=== PATIENT | female | born 1985 | race Caucasian/White ===

== ENCOUNTER 2019-12-16 12:00 | Inpatient (IN) | payer BC ==
--- NOTE | 2019-12-16 13:03 | ED ---
General Adult HPI - General Chief complaint: Chest Pain Stated complaint: chest pain/high BP Time Seen by Provider: 12/16/19 12:40 Source: patient Mode of arrival: wheelchair Limitations: no limitations - History of Present Illness Initial comments: Dictation was produced using [email or web address] dictation software. please excuse any grammatical, word or spelling errors. This patient was cared for during a federal and state declared state of emergency secondary to Covid 19 Chief Complaint: 34-year-old female no significant comorbid is presents with chest pain History of Present Illness: He 4-year-old female no significant comorbidities. She presents today with chest pain. She states that the pain is sharp and pressure-like with radiation to the bilateral shoulder blades. She did experience some paresthesias to the upper extremities. Denies any LOC showing symptoms. Denies any history of blood clot. Patient states that she checked her blood pressures found to be significantly elevated with systolics in the 230s. Patient states that at home she thought that perhaps her symptoms were secondary to musculoskeletal fatigue from gardening work yesterday. Patient had one cup of coffee today. She denies any history of hypertension. She reports that the pain is still persistent although not as severe as it was earlier. 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 The ROS documented in this emergency department record has been reviewed and confirmed by me. Those systems with pertinent positive or negative responses have been documented in the HPI. All other systems are other negative and/or noncontributory. PHYSICAL EXAM: General Impression: Alert and oriented x3, mild distress HEENT: Normocephalic atraumatic, extra-ocular movements intact, pupils equal and reactive to light bilaterally, mucous membranes moist. Cardiovascular: Heart regular rate and rhythm Chest: Able to complete full sentences, no retractions, no tachypnea. Lungs clear to auscultation bilaterally Abdomen: abdomen soft, non-tender, non-distended, no organomegaly Musculoskeletal: Pulses present and equal in all extremities, no peripheral edema Motor: no focal deficits noted Neurological: CN II-XII grossly intact, no focal motor or sensory deficits noted Skin: Intact with no visualized rashes Psych: Normal affect and mood ED course: 34-year-old female presents with chest pain. Vital signs upon arrival shows blood pressure of 242/122, worse vital signs within acceptable limits.initial EKG showed nonspecific findings. Repeat EKG was performed approximately one hour after the initial EKG showing no dynamic ch anges.Laboratory evaluation obtained. CBC, coag panel, metabolic panel is unremarkable. Troponin however is elevated 0.046. Beta hCG is negative. Discussed with radiology patient's CT of the thoracic aorta. No findings of acute aortic dissection or pulmonary embolus. Patient started on heparin for concerns of nstemi.. She took 324 mg of aspirin prior to arrival. Clinical presentation concerning for hypertensive emergency. Discussed patient case with the director of individual giving who requests the patient be started on clevidipine. Discussed patient case with Dr. Aldana was went except patient's care is hospitalist. EKG interpretation: Ventricular rate 80, normal sinus rhythm,. Interval 144, QRS 90, QTC 410. Hyperacute T waves in anterior precordial leads. There is T- wave inversions in 3 and aVF with small Q-wave. Overall these are nonspecific findings. - Related Data Home Medications Medication Instructions Recorded Confirmed Albuterol Sulfate [Ventolin HFA] 2 puff INHALATION RT-Q4H PRN 12/16/19 12/16/19 Azelastine HCl [Astepro] 1 spray EA NOSTRIL DAILY 12/16/19 12/16/19 Fexofenadine HCl [Tanja Allergy] 180 mg PO HS 12/16/19 12/16/19 Fluticasone Nasal [place] [Flonase 1 spray EA NOSTRIL HS 12/16/19 12/16/19 Nasal [place]] Allergies Allergy/AdvReac Type Severity Reaction Status Date / Time No Known Allergies Allergy Verified 12/16/19 15:22 Review of Systems ROS Statement: Those systems with pertinent positive or pertinent negative responses have been documented in the HPI. ROS Other: All systems not noted in ROS Statement are negative. Past Medical History Past Medical History: No Reported History History of Any Multi-Drug Resistant Organisms: None Reported Past Surgical History: No Surgical Hx Reported Past Psychological History: No Psychological Hx Reported Smoking Status: Current every day smoker Past Alcohol Use History: Occasional Past Drug Use History: Marijuana General Exam Limitations: no limitations Course Vital Signs 12/16/19 12/16/19 12/16/19 12:15 12:34 13:00 Temperature 98.4 F Pulse Rate 86 91 82 Respiratory 18 Rate Blood Pressure 242/122 206/136 O2 Sat by Pulse 99 98 Oximetry 12/16/19 12/16/19 12/16/19 13:30 13:48 14:00 Temperature Pulse Rate 89 73 70 Respiratory Rate Blood Pressure 217/123 200/128 200/128 O2 Sat by Pulse 97 98 98 Oximetry 12/16/19 14:30 Temperature Pulse Rate 76 Respiratory Rate Blood Pressure 203/120 O2 Sat by Pulse 98 Oximetry Medical Decision Making - Lab Data Result diagrams: 12/16/19 12:43 12/16/19 12:43 Lab Results 12/16/19 12/16/19 12/16/19 Range/Units 12:43 12:43 12:43 WBC 6.4 (3.8-10.6) k/uL RBC 5.13 (3.80-5.40) m/uL Hgb 13.9 (11.4-16.0) gm/dL Hct 44.2 (34.0-46.0) % MCV 86.2 (80.0-100.0) fL MCH 27.0 (25.0-35.0) pg MCHC 31.4 (31.0-37.0) g/dL RDW 13.9 (11.5-15.5) % Plt Count 193 (150-450) k/uL Neutrophils % 58 % Lymphocytes % 28 % Monocytes % 5 % Eosinophils % 5 % Basophils % 2 % Neutrophils # 3.7 (1.3-7.7) k/uL Lymphocytes # 1.8 (1.0-4.8) k/uL Monocytes # 0.3 (0-1.0) k/uL Eosinophils # 0.3 (0-0.7) k/uL Basophils # 0.1 (0-0.2) k/uL PT (9.0-12.0) sec INR (<1.2) APTT (22.0-30.0) sec Sodium 136 L (137-145) mmol/L Potassium 4.4 (3.5-5.1) mmol/L Chloride 108 H (98-107) mmol/L Carbon Dioxide 20 L (22-30) mmol/L Anion Gap 8 mmol/L BUN 16 (7-17) mg/dL Creatinine 0.79 (0.52-1.04) mg/dL Est GFR (CKD-EPI)AfAm >90 (>60 ml/min/1.73 sqM) Est GFR (CKD-EPI)NonAf >90 (>60 ml/min/1.73 sqM) Glucose 108 H (74-99) mg/dL Calcium 8.8 (8.4-10.2) mg/dL Troponin I 0.046 H* (0.000-0.034) ng/mL Urine HCG, Qual (Not Detectd) 12/16/19 12/16/19 Range/Units 12:43 13:45 WBC (3.8-10.6) k/uL RBC (3.80-5.40) m/uL Hgb (11.4-16.0) gm/dL Hct (34.0-46.0) % MCV (80.0-100.0) fL MCH (25.0-35.0) pg MCHC (31.0-37.0) g/dL RDW (11.5-15.5) % Plt Count (150-450) k/uL Neutrophils % % Lymphocytes % % Monocytes % % Eosinophils % % Basophils % % Neutrophils # (1.3-7.7) k/uL Lymphocytes # (1.0-4.8) k/uL Monocytes # (0-1.0) k/uL Eosinophils # (0-0.7) k/uL Basophils # (0-0.2) k/uL PT 10.0 (9.0-12.0) sec INR 1.0 (<1.2) APTT 24.0 (22.0-30.0) sec Sodium (137-145) mmol/L Potassium (3.5-5.1) mmol/L Chloride (98-107) mmol/L Carbon Dioxide (22-30) mmol/L Anion Gap mmol/L BUN (7-17) mg/dL Creatinine (0.52-1.04) mg/dL Est GFR (CKD-EPI)AfAm (>60 ml/min/1.73 sqM) Est GFR (CKD-EPI)NonAf (>60 ml/min/1.73 sqM) Glucose (74-99) mg/dL Calcium (8.4-10.2) mg/dL Troponin I (0.000-0.034) ng/mL Urine HCG, Qual Not Detected (Not Detectd) Disposition Clinical Impression: Hypertensive emergency Disposition: ADMITTED IP TO THIS HOSP Condition: Critical Referrals: None,Stated [Primary Care Provider] - 1-2 days Decision Time: 16:02
[2019-12-16 13:40] LABS: Basophils # (A) 0.1 k/uL (0-0.2); Basophils % (A) 2 %; Eosinophils # (A) 0.3 k/uL (0-0.7); Eosinophils % (A) 5 %; HCT 44.2 % (34.0-46.0); HGB 13.9 gm/dL (11.4-16.0); Lymphocytes # (A) 1.8 k/uL (1.0-4.8); Lymphocytes % (A) 28 %; MCHC 31.4 g/dL (31.0-37.0); MCV 86.2 fL (80.0-100.0); Monocytes # (A) 0.3 k/uL (0-1.0); Monocytes % (A) 5 %; Neutrophils # (A) 3.7 k/uL (1.3-7.7); Neutrophils % (A) 58 %; Platelet Count 193 k/uL (150-450); RBC 5.13 m/uL (3.80-5.40); RDW 13.9 % (11.5-15.5); WBC 6.4 k/uL (3.8-10.6)
[2019-12-16 14:05] LABS: African American GFR (CKD) >90 (>60 ml/min/1.73 sqM); Anion Gap 8 mmol/L; Blood Urea Nitrogen 16 mg/dL (7-17); Calcium 8.8 mg/dL (8.4-10.2); Carbon Dioxide 20 mmol/L (22-30); Chloride 108 mmol/L (98-107); Glucose 108 mg/dL (74-99); Non-African American GFR(CKD) >90 (>60 ml/min/1.73 sqM); Sodium 136 mmol/L (137-145)
[2019-12-16 14:18] LABS: Potassium 4.4 mmol/L (3.5-5.1)
[2019-12-16] MEDS ORDERED: HEPARIN SODIUM,PORCINE 5,000 UNIT/ML 1 ML VIAL IV PRN (14:47)
[2019-12-16] MEDS ORDERED: NITROGLYCERIN-D5W PMX 50 MG in DEXTROSE/WATER 1 250ML.BAG IV ONE ×2 (14:47→15:39)
[2019-12-16] MEDS ORDERED: HEPARIN SOD,PORK IN 0.45% NACL 25,000 UNIT in 0.45% NACL 1 250ML.BAG IV SCH ×2 (15:00→15:45)
[2019-12-16] MEDS: HEPARIN SODIUM,PORCINE 5,000 UNIT/ML 1 ML VIAL IV ONE ×2 (15:08→16:05)
[2019-12-16] MEDS ORDERED: HEPARIN SODIUM,PORCINE 5,000 UNIT/ML 1 ML VIAL IV ONE (15:39)
[2019-12-16] MEDS ORDERED: NITROGLYCERIN SL TABS 0.4 MG TAB SUBLINGUAL STA (15:39)
--- NOTE | 2019-12-16 16:00 | CT ---
EXAMINATION TYPE: CT angio thor/abd pel aorta DATE OF EXAM: 12/16/2019 COMPARISON: None. HISTORY: chest pain, elevated BP CT DLP: 888.1 mGycm. Automated Exposure Control for Dose Reduction was Utilized. CONTRAST: CTA scan of the thorax, abdomen and half of pelvis is performed with IV Contrast, patient injected wi th 100 mL of Isovue 370. Dissection protocol with 3-D reconstructive images created on a independent workstation and reviewed. FINDINGS: VASCULAR: Satisfactory enhancement of the pulmonary artery and its branches, no CT evidence for acute pulmonary embolism. Ascending aorta measures up to 3.6 cm diameter maximum of 69. Normal three-vesse l origin from September. There is very evident in the upper abdominal aorta with originating small vessel and then to adjacent arteries axial image 153 and 155 above the SMA axial image 160. Patent bilatera l single renal arteries and [place]. Patent, and along with internal and external iliac arteries. No sign ificant plaque or stenosis. No aneurysm. No linear hypodensity to suggest dissection. LUNGS: The lungs are grossly clear, there is no concerning parenchymal mass or nodule identified. There is no pleural effusion or pneumothorax seen. The tracheobronchial tree is patent. MEDIASTINUM: There are no greater than 1 cm hilar or mediastinal lymph nodes. No cardiomegaly or pe ricardial effusion is seen. LIVER/GB: No significant abnormality is appreciated. PANCREAS: No significant abnormality is seen. SPLEEN: No significant abnormality is seen. ADRENALS: No significant abnormality is seen. KIDNEYS: No significant abnormality is seen. BOWEL: Suboptimal evaluation without enteric contrast. No suspicious small or large bowel dilatation. GENITAL ORGANS: Anteverted uterus partially imaged. Suspect some free fluid right pelvis axial image 240, nonspecific finding. Partial visualization of ovaries suboptimally evaluated. LYMPH NODES: No greater than 1cm abdominal or upper pelvic lymph nodes are appreciated. OSSEOUS STRUCTURES: No significant abnormality is seen. OTHER: No significant additional abnormality is seen. IMPRESSION: No CT evidence for aortic aneurysm or dissection. No acute pulmonary embolism. Normal co ngenital variant at level of celiac artery origin is presumed present.
[2019-12-16] MEDS: CLEVIDIPINE BUTYRATE 25 MG in EMPTY BAG 1 BAG IV SCH ×4 (16:12→23:41)
[2019-12-16] MEDS ORDERED: NITROGLYCERIN OINT 1 INCH/GM PACKET TOPICAL STA (16:36)
--- NOTE | 2019-12-16 16:36 | P.CNPUL ---
History of Present Illness Consult date: 12/16/19 Reason for consult: chest pain, other Chief complaint: Chest pain, hypertensive emergency History of present illness: 34-year-old patient of Dr. Cristina, past medical history of hypertension not on any antihypertensives, current smoker, ALLERGIC rhinitis home medications include Astepro, Tanja, Flonase and Ventolin inhaler, employed as an x-ray tech at the [employer], was at work today on 12/16/2023 she started e xperiencing dull pressure in her chest in the left breast area, was occasionally sharper in nature, and lasted for a few hours, she is still experiencing some chest discomfort right now. She had her blood pressure checked by someone at work and it was quite elevated with systolic in the 230s. Patient states she had some mild shortness of breath but she thinks it was more from anxiety. No nausea or vomiting, no diaphoresis, no recent illness. The pressure-like chest sensation was radiating to the bilateral shoulder blades. NO Altered mentation, no lower extremity swelling. EKG showed normal sinus rhythm with a Q waves in the anterior leads including V2, V3, V4, and evidence of anterior infarct of undetermined age. T-wave inversion in the lead 3. 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 Labs showed CBC within normal limits, remission profile was within normal limits, sodium is 136, potassium is 4.4, chloride is 108, CO2 is 20, BUN of 16, creatinine is 0.79, first troponin came back as 0.046. Echocardiogram is pending, patient will be started on Topamax for blood pressure control, she is currently awake and alert, responding appropriately to questions, no acute distress, lung sounds are clear to auscultation. Urine hCG was negative. Review of Systems All systems: negative Constitutional: Denies chills, Denies fever Eyes: denies blurred vision, denies pain Ears, nose, mouth and throat: Denies headache, Denies sore throat Cardiovascular: Reports chest pain, Denies shortness of breath Respiratory: Denies cough Gastrointestinal: Denies abdominal pain, Denies diarrhea, Denies nausea, Denies vomiting Genitourinary: Denies dysuria, Denies hematuria Musculoskeletal: Denies myalgias Integumentary: Denies pruritus, Denies rash Neurological: Denies numbness, Denies weakness Psychiatric: Denies anxiety, Denies depression Endocrine: Denies fatigue, Denies weight change Past Medical History Past Medical History: No Reported History History of Any Multi-Drug Resistant Organisms: None Reported Past Surgical History: No Surgical Hx Reported Past Psychological History: No Psychological Hx Reported Smoking Status: Current every day smoker Past Alcohol Use History: Occasional Past Drug Use History: Marijuana - Past Family History Father Family Medical History: Hyperlipidemia Medications and Allergies Home Medications Medication Instructions Recorded Confirmed Type Albuterol Sulfate [Ventolin HFA] 2 puff INHALATION RT-Q4H PRN 12/16/19 12/16/19 History Azelastine HCl [Astepro] 1 spray EA NOSTRIL DAILY 12/16/19 12/16/19 History Fexofenadine HCl [Tanja Allergy] 180 mg PO HS 12/16/19 12/16/19 History Fluticasone Nasal [place] [Flonase 1 spray EA NOSTRIL HS 12/16/19 12/16/19 History Nasal [place]] Allergies Allergy/AdvReac Type Severity Reaction Status Date / Time No Known Allergies Allergy Verified 12/16/19 15:22 Physical Exam Vitals: Vital Signs Temp Pulse Resp BP Pulse Ox 12/16/19 14:30 76 203/120 98 12/16/19 14:00 70 200/128 98 12/16/19 13:48 73 200/128 98 12/16/19 13:30 89 217/123 97 12/16/19 13:00 82 206/136 98 12/16/19 12:34 91 12/16/19 12:15 98.4 F 86 18 242/122 99 Intake and Output 12/16/19 12/16/19 12/16/19 06:59 14:59 22:59 Other: Weight 84.822 kg GENERAL EXAM: Alert, very pleasant, 34-year-old white female, on room air, with a pulse ox of 98% comfortable in no apparent distress. HEAD: Normocephalic/atraumatic. EYES: Normal reaction of pupils, equal size. Conjunctiva pink, sclera white. NOSE: Clear with pink turbinates. THROAT: No erythema or exudates. NECK: No masses, no JVD, no thyroid enlargement, no adenopathy. CHEST: No chest wall deformity. Symmetrical expansion. LUNGS: Equal air entry with no crackles, wheeze, rhonchi or dullness. CVS: Regular rate and rhythm, normal S1 and S2, no gallops, no murmurs, no rubs ABDOMEN: Soft, nontender. No hepatosplenomegaly, normal bowel sounds, no guarding or rigidity. EXTREMITIES: No clubbing, no edema, no cyanosis, 2+ pulses and upper and lower extremities. MUSCULOSKELETAL: Muscle strength and tone normal. SPINE: No scoliosis or deformity SKIN: No rashes CENTRAL NERVOUS SYSTEM: Alert and oriented -3. No focal deficits, tone is normal in all 4 extremities. PSYCHIATRIC: Alert and oriented -3. Appropriate affect. Intact judgment and insight. Results - Laboratory Findings CBC and BMP: 12/16/19 12:43 12/16/19 12:43 PT/INR, D-dimer PT 10.0 sec (9.0-12.0) 12/16/19 12:43 INR 1.0 (<1.2) 12/16/19 12:43 Abnormal lab findings: Abnormal Labs 12/16/19 12/16/19 12:43 12:43 Sodium 136 L Chloride 108 H Carbon Dioxide 20 L Glucose 108 H Troponin I 0.046 H* - Diagnostic Findings Chest x-ray: report reviewed, image reviewed Additional studies: CT angios of thoracic abdominal aorta Assessment and Plan Plan: Assessment: #1. Hypertensive emergency #2. Chest pain, mildly elevated troponin #3. History of hypertension not on any antihypertensives #4. History of ALLERGIC rhinitis #5. Current smoker, smokes half a pack a day for 10 years #6. Family history of her disease, mother has hypertension, father has hyperlipidemia, grandfather had CT in his 40s Plan: We'll use clevidipine drip for blood pressure control, follow troponins, troponin could be elevated to hypertensive emergency will hold off on heparin infusion, patient will be admitted to the intensive care unit, obtain stat echocardiogram. Patient will be monitored in the intensive care unit, CTA of thoracic and abdominal aorta has been reviewed, no evidence of PE, lungs are grossly clear. May use intermittent nitroglycerin patch every 6 hours. Continue to follow I performed a history & physical examination of the patient and discussed their management with my nurse practitioner, Archana Hayes. I reviewed the nurse practitioner's note and agree with the documented findings and plan of care. Lung sounds are positive for clear breath sounds.. The findings and the impression was discussed with the patient. I attest to the documentation by the nurse practitioner.
[2019-12-16 17:03] LABS: Amphetamine Screen,Urine Not Detected (NotDetected); Barbiturate Screen,Urine Not Detected (NotDetected); Benzodiazepines Screen,Urine Not Detected (NotDetected); Cocaine Screen,Urine Not Detected (NotDetected); Methadone Screen, Urine Not Detected (NotDetected); Opiate Screen,Urine Not Detected (NotDetected); Oxycodone Screen, Urine Not Detected (NotDetected); Phencyclidine Screen,Urine Not Detected (NotDetected); Tricyclic Antidepressant,Urine Not Detected (NotDetected); Urn Cannabinoid Scrn Detected (NotDetected)
[2019-12-16 17:28] LABS: Glucose,Whole Blood 91 mg/dL (75-99)
[2019-12-16] MEDS ORDERED: ALBUTEROL NEBULIZED 2.5 MG/3 ML INHALATION PRN (17:36)
[2019-12-16] MEDS ORDERED: TEMAZEPAM 15 MG CAP PO PRN (17:37)
[2019-12-16] MEDS ORDERED: HYDROcodone/APAP 5-325MG 1 EACH TAB PO PRN (17:37)
[2019-12-16] MEDS ORDERED: hydrALAZINE HCL 20 MG/ML 1 ML VIAL IVP PRN (17:38)
--- NOTE | 2019-12-16 18:31 | HP ---
HISTORY AND PHYSICAL DATE OF SERVICE: 12/16/2019 CHIEF COMPLAINTS: Chest pain and hypertensive urgency. HISTORY OF PRESENT ILLNESS: This 34-year-old woman with a past medical history of multiple medical problems, including history of occasional hypertension, history of THC, history of nicotine dependence, not being followed by a primary physician in the outpatient setting, was apparently working in [employer]. The patient is reporting increased stress for the past several days. Today the patient had significant chest pain which was sharp in character and radiated to the bilateral shoulder blades and some paresthesia in the upper limbs. The patient's blood pressure was found to be more than 230. The patient was taken to [facility] and was admitted for further evaluation and treatment. The patient had a thoracic aorta CT scan which showed no evidence of any aortic dissection. The EKG was also noted and showed some ST-T changes. The patient is being transferred to ICU for further evaluation and treatment. Dr. Schuster has been consulted. There is no history of any fever, rigor or chills. No history of headache, loss of consciousness, seizures. PAST MEDICAL HISTORY: History of hypertension, history of smoking, history of THC. HOME MEDICATIONS: 1. Flonase spray. 2. Tanja spray. 3. Astepro spray. 4. Ventolin 2 puffs q.4 p.r.n. ALLERGIES: NONE. FAMILY HISTORY: History of hyperlipidemia in the family. SOCIAL HISTORY: History of smoking, as mentioned earlier. REVIEW OF SYSTEMS: ENT: No diminished hearing. No diminished vision. CARDIOVASCULAR SYSTEM: As mentioned earlier. RESPIRATORY SYSTEM: No cough, hemoptysis. GI: No nausea, vomiting. : No dysuria or retention. NERVOUS SYSTEM: No numbness, weakness. ALLERGY/IMMUNOLOGY: No asthma, hayfever. MUSCULOSKELETAL: As mentioned earlier. HEMATOLOGY/ONCOLOGY: No history of anemia. ENDOCRINE: No history of diabetes, hypothyroidism. CONSTITUTIONAL: As mentioned earlier. DERMATOLOGY: Negative. RHEUMATOLOGY: Negative. PSYCHIATRY: As mentioned earlier. PHYSICAL EXAMINATION: Patient is alert, oriented x3. The pulse is 85. Blood pressure was 242/122. HEENT: Conjunctivae normal. NECK: No jugular venous distention. CARDIOVASCULAR SYSTEM: S1, S2 muffled. No S3. No S4. RESPIRATORY SYSTEM: Breath sounds diminished at the bases. No rhonchi. No crackles. ABDOMEN: Soft, non-tender. No mass palpable. LEGS: No edema. No swelling. NERVOUS SYSTEM: Higher functions as mentioned earlier. Moves all 4 limbs. No focal motor or sensory deficit. LYMPHATICS: No lymph node palpable in neck, axillae or groin. SKIN: No ulcer, rash, bleeding. JOINTS: No active deforming arthropathy. LABS: CBC within normal limits. INR 1. Sodium 136, potassium 4.4 and glucose 108. Troponin 0.046. UA noted. Drug screen THC positive. ASSESSMENT: 1. Chest pain, possible unstable angina. 2. Hypertensive urgency and accelerated hypertension. 3. Troponin 0.046. Rule out acute rte-CC-colryyq-elevation myocardial infarction. 4. Hyponatremia. 5. History of social stressors. 6. History of nicotine dependence. 7. History of tetrahydrocannabinol. RECOMMENDATIONS AND DISCUSSION: In this 34-year-old woman who presented with multiple complex medical issues, we recommend to continue the current medications, continue symptomatic treatment. Transfer to ICU. Cleviprex drip. Cardiology and pulmonology evaluations. Monitor blood pressure closely. Will repeat the troponins and also obtain a 2D echo with Doppler. The patient will require further cardiac workup, including a stress test. Also I would recommend that the patient follow up with a primary physician closely after discharge. Avoid some of the nasal sprays. Discussed with the patient, who understands and agrees. Further recommendations to follow. MMGENEVAL / IJN: [id number] /
[2019-12-16] MEDS: LORATADINE 10 MG TAB PO SCH (21:31)
[2019-12-16] MEDS: FLUTICASONE 50MCG/SPRAY NASAL 16GM EA NOSTRIL SCH (21:31)
[2019-12-16] MEDS ORDERED: ONDANSETRON 4 MG/2 ML VIAL IVP PRN (22:22)
[2019-12-16] MEDS: ALPRAZolam 0.25 MG TAB PO PRN (22:54)
[2019-12-16 23:27] LABS: Appearance,Urine Clear (Clear); Bilirubin,Urine Negative (Negative); Blood,Urine Negative (Negative); Color,Urine Light Yellow; Glucose,Urine (UA) Negative (Negative); Ketones,Urine Negative (Negative); Leukocyte Esterase,Urine Small (Negative); Nitrite,Urine Negative (Negative); PH, Urine 7.5 (5.0-8.0); Protein,Urine Negative (Negative); Specific Gravity,Urine 1.013 (1.001-1.035); Squamous Epithelial Cell,Urine 2 /hpf (0-4); Urobilinogen,Urine <2.0 mg/dL (<2.0); WBC,Urine 1 /hpf (0-5)
[2019-12-17] MEDS: CLEVIDIPINE BUTYRATE 25 MG in EMPTY BAG 1 BAG IV SCH ×3 (02:18→20:33)
[2019-12-17 04:57] LABS: Basophils # (A) 0.1 k/uL (0-0.2); Basophils % (A) 1 %; Eosinophils # (A) 0.4 k/uL (0-0.7); Eosinophils % (A) 5 %; HCT 45.6 % (34.0-46.0); HGB 14.4 gm/dL (11.4-16.0); Lymphocytes # (A) 2.2 k/uL (1.0-4.8); Lymphocytes % (A) 29 %; MCH 27.1 pg (25.0-35.0); MCHC 31.6 g/dL (31.0-37.0); MCV 85.9 fL (80.0-100.0); Mean Platelet Volume 8.9; Monocytes # (A) 0.4 k/uL (0-1.0); Monocytes % (A) 5 %; Neutrophils # (A) 4.4 k/uL (1.3-7.7); Neutrophils % (A) 57 %; Platelet Count 170 k/uL (150-450); RBC 5.31 m/uL (3.80-5.40); RDW 14.1 % (11.5-15.5); WBC 7.7 k/uL (3.8-10.6)
[2019-12-17 05:13] LABS: ALT 18 U/L (4-34); AST 23 U/L (14-36); African American GFR (CKD) >90 (>60 ml/min/1.73 sqM); Albumin 4.1 g/dL (3.5-5.0); Alkaline Phosphatase 47 U/L (38-126); Anion Gap 7 mmol/L; Blood Urea Nitrogen 11 mg/dL (7-17); Calcium 8.8 mg/dL (8.4-10.2); Carbon Dioxide 21 mmol/L (22-30); Chloride 105 mmol/L (98-107); Glucose 98 mg/dL (74-99); Non-African American GFR(CKD) >90 (>60 ml/min/1.73 sqM); Potassium 4.2 mmol/L (3.5-5.1); Sodium 133 mmol/L (137-145); Total Bilirubin 0.4 mg/dL (0.2-1.3)
[2019-12-17] MEDS ORDERED: PANTOPRAZOLE 40 MG TABLET PO SCH (07:30)
--- NOTE | 2019-12-17 07:54 | P.CRDCN ---
History of Present Illness Consult date: 12/17/19 Chief complaint: Chest pain History of present illness: This is a very pleasant 34-year-old female patient with a past medical history significant for underlying hypertension as well as history of smoking presented to the hospital complaining of chest discomfort. She was in her usual state of health when she was at work when she started experiencing discomfort over the left side of the chest, as sharp, without any radiation to the arms or neck or shoulders, and without any associated symptoms of sweating, dizziness, heart racing, or syncope. The patient checked her pressure at work and that was more than 200 mmHg systolic and because of that she decided to come to the hospital. In the hospital she continues to be hypertensive for she was admitted to the intensive care unit and she was started on IV calcium channel sydni. Her pr essure has been under good control since then. She stated that her chest discomfort has improved significantly after the pressure came down. The patient is not aware of any prior history of hypertension but she does have significant family history of high blood pressure. She does not have any coronary artery disease, diabetes, or dyslipidemia. She doesn't smoke. No significant family history of premature coronary artery disease. The EKG showed sinus rhythm with nonspecific changes inferiorly. The cardiac enzymes were checked and came in to be slightly abnormal which could be related to hypertension emergency but at the same time severe underlying coronary artery disease needs to be ruled out. An echocardiogram also in process to be done. I am going to start the patient on metoprolol and I'm going to wean the patient back from the IV medication. We'll follow-up on the echocardiogram. And follow-up with the patient. Please note that the patient was using anti-congestion medication for the last several days. Past Medical History Past Medical History: No Reported History Additional Past Medical History / Comment(s): Season allergies; OTC tanja, flonase, ventiline inhaler History of Any Multi-Drug Resistant Organisms: None Reported Past Surgical History: No Surgical Hx Reported Additional Past Surgical History / Comment(s): wisdom teeth removal Past Psychological History: Depression Additional Psychological History / Comment(s): Depression; childhood, no longer current problem Smoking Status: Current some day smoker Past Alcohol Use History: Occasional Additional Past Alcohol Use History / Comment(s): Smoke occassionally; stressful events in life. Alcohol consumption socially "Maybe once weekly" Past Drug Use History: Marijuana - Past Family History Father Family Medical History: Coronary Artery Disease (CAD), Hyperlipidemia mother Family Medical History: Rheumatoid Arthritis (RA), Thyroid Disorder Additional Family Medical History / Comment(s): Hypothyroidismm, Bladder cancer Medications and Allergies Home Medications Medication Instructions Recorded Confirmed Type Albuterol Sulfate [Ventolin HFA] 2 puff INHALATION RT-Q4H PRN 12/16/19 12/16/19 History Azelastine HCl [Astepro] 1 spray EA NOSTRIL DAILY 12/16/19 12/16/19 History Fexofenadine HCl [Tanja Allergy] 180 mg PO HS 12/16/19 12/16/19 History Fluticasone Nasal [place] [Flonase 1 spray EA NOSTRIL HS 12/16/19 12/16/19 History Nasal [place]] Allergies Allergy/AdvReac Type Severity Reaction Status Date / Time No Known Allergies Allergy Verified 12/16/19 15:22 Physical Exam Vitals: Vital Signs Temp Pulse Pulse Resp BP BP Pulse Ox 12/17/19 07:00 89 16 118/95 90 L 12/17/19 06:00 71 17 135/88 93 L 12/17/19 05:00 81 19 109/71 96 12/17/19 04:00 77 16 130/75 89 L 12/17/19 03:00 89 15 112/68 93 L 12/17/19 02:00 84 18 109/87 94 L 12/17/19 01:00 82 17 127/84 89 L 12/17/19 00:00 101 H 20 141/97 91 L 12/16/19 23:00 90 16 125/76 95 12/16/19 22:15 105 H 24 125/76 95 12/16/19 22:00 92 21 128/85 96 12/16/19 21:45 94 38 H 133/90 95 12/16/19 21:30 92 23 141/95 95 12/16/19 21:15 107 H 28 H 134/75 96 12/16/19 21:00 95 16 156/98 96 12/16/19 20:45 97 21 149/96 97 12/16/19 20:30 105 H 18 145/94 96 12/16/19 20:15 97.9 F 96 19 149/92 95 12/16/19 20:00 104 H 20 134/77 96 12/16/19 19:45 108 H 15 149/88 97 12/16/19 19:30 106 H 15 142/91 97 12/16/19 19:15 104 H 13 144/80 98 12/16/19 19:00 101 H 19 97 12/16/19 18:45 36 H 159/98 12/16/19 18:30 101 H 13 163/91 97 12/16/19 18:15 92 0 L 170/100 97 12/16/19 18:00 103 H 19 188/120 98 12/16/19 17:30 13 180/112 97 12/16/19 17:00 98.2 F 85 14 194/111 98 12/16/19 16:53 89 19 188/120 97 12/16/19 16:45 201/108 12/16/19 16:35 208/124 12/16/19 16:30 88 223/135 98 12/16/19 16:00 84 193/124 99 12/16/19 15:30 80 209/136 99 12/16/19 15:00 66 218/121 98 12/16/19 14:30 76 203/120 98 12/16/19 14:00 70 200/128 98 12/16/19 13:48 73 200/128 98 12/16/19 13:30 89 217/123 97 12/16/19 13:00 82 206/136 98 12/16/19 12:34 91 12/16/19 12:15 98.4 F 86 18 242/122 99 Intake and Output 12/16/19 12/17/19 12/17/19 22:59 06:59 14:59 Intake Total 663.733 290.0 20 Output Total 0 0 Balance 663.733 290.0 20 Intake: IV 140 140 20 0.9 NACL 120 0.9% Sodium Chloride 20 140 20 Intake, IV Titration 73.733 150.0 Amount Clevidipine Butyrate 25 73.733 150.0 mg In Empty Bag 1 bag @ 1 MG/HR 2 mls/hr IV .Q24H [facility] Rx#:[id number] Oral 450 Output: Urine 0 0 Other: # Voids 0 400 Weight 84.822 kg 85.1 kg - Constitutional General appearance: no acute distress - Respiratory Respiratory: bilateral: CTA - Cardiovascular Rhythm: regular Heart sounds: normal: S1, S2 Results 12/17/19 04:31 12/17/19 04:31 Cardiac Enzymes 12/16/19 12/16/19 12/17/19 Range/Units 12:43 17:43 04:31 AST (14-36) U/L Troponin I 0.046 H* 0.509 H* 0.544 H* (0.000-0.034) ng/mL 12/17/19 Range/Units 04:31 AST 23 (14-36) U/L Troponin I (0.000-0.034) ng/mL Coagulation 12/16/19 Range/Units 12:43 PT 10.0 (9.0-12.0) sec APTT 24.0 (22.0-30.0) sec CBC 12/16/19 12/17/19 Range/Units 12:43 04:31 WBC 6.4 7.7 (3.8-10.6) k/uL RBC 5.13 5.31 (3.80-5.40) m/uL Hgb 13.9 14.4 (11.4-16.0) gm/dL Hct 44.2 45.6 (34.0-46.0) % Plt Count 193 170 (150-450) k/uL Comprehensive Metabolic Panel 12/16/19 12/17/19 Range/Units 12:43 04:31 Sodium 136 L 133 L (137-145) mmol/L Potassium 4.4 4.2 (3.5-5.1) mmol/L Chloride 108 H 105 (98-107) mmol/L Carbon Dioxide 20 L 21 L (22-30) mmol/L BUN 16 11 (7-17) mg/dL Creatinine 0.79 0.77 (0.52-1.04) mg/dL Glucose 108 H 98 (74-99) mg/dL Calcium 8.8 8.8 (8.4-10.2) mg/dL AST 23 (14-36) U/L ALT 18 (4-34) U/L Alkaline Phosphatase 47 (38-126) U/L Total Protein 7.0 (6.3-8.2) g/dL Albumin 4.1 (3.5-5.0) g/dL Current Medications Generic Name Dose Route Start Last Admin Trade Name Freq PRN Reason Stop Dose Admin Hydrocodone Bitart/Acetaminophen 1 each 12/16/19 17:37 12/16/19 20:37 [place] 5-325 PO 1 each Q6HR PRN Administration Pain Albuterol Sulfate 2.5 mg 12/16/19 17:36 Ventolin Nebulized INHALATION RT-Q4H PRN Shortness Of Breath Alprazolam 0.25 mg 12/16/19 17:37 12/16/19 22:54 Xanax PO 0.25 mg TID PRN Administration Anxiety Amlodipine Besylate 2.5 mg 12/17/19 09:00 Norvasc PO DAILY [facility] Fluticasone Propionate 1 spray 12/16/19 21:00 12/16/19 21:31 Flonase Nasal [place] EA NOSTRIL 1 spray HS [facility] Administration Hydralazine HCl 10 mg 12/16/19 17:38 Apresoline IVP Q4HR PRN Blood Pressure - High Clevidipine 25 mg/ IV Solution 50 mls @ 2 mls/hr 12/16/19 16:00 12/17/19 06:11 IV 7 mg/hr .Q24H [facility] 14 mls/hr Administration Protocol 1 MG/HR Loratadine 10 mg 12/16/19 21:15 12/16/19 21:31 Claritin PO 10 mg DAILY [facility] Administration Metoprolol Tartrate 25 mg 12/17/19 09:00 Lopressor PO BID [facility] Nicotine 1 patch 12/17/19 09:00 Habitrol 14mg/24hr Patch TRANSDERM DAILY [facility] Ondansetron HCl 4 mg 12/16/19 22:22 12/16/19 22:31 Zofran IVP 4 mg Q6HR PRN Administration Nausea And Vomiting Pantoprazole Sodium 40 mg 12/17/19 09:00 Protonix IVP BID [facility] Temazepam 15 mg 12/16/19 17:37 Restoril PO HS PRN Insomnia Intake and Output 12/16/19 12/17/19 12/17/19 22:59 06:59 14:59 Intake Total 663.733 290.0 20 Output Total 0 0 Balance 663.733 290.0 20 Intake: IV 140 140 20 0.9 NACL 120 0.9% Sodium Chloride 20 140 20 Intake, IV Titration 73.733 150.0 Amount Clevidipine Butyrate 25 73.733 150.0 mg In Empty Bag 1 bag @ 1 MG/HR 2 mls/hr IV .Q24H [facility] Rx#:[id number] Oral 450 Output: Urine 0 0 Other: # Voids 0 400 Weight 84.822 kg 85.1 kg 12/17/19 04:31 12/17/19 04:31 Assessment and Plan Assessment: Assessment Hypertension emergency Mildly abnormal cardiac enzymes Chest discomfort which has improved History of smoking Plan Add aspirin to the current medical regimen Add metoprolol by mouth to the current medical regimen The right wean her from the IV calcium channel sydni Follow-up on the echocardiogram Severe underlying coronary artery disease to be ruled out Follow-up with the patient
[2019-12-17] MEDS: LORATADINE 10 MG TAB PO SCH (08:11)
[2019-12-17] MEDS: METOPROLOL TARTRATE 25 MG TAB PO SCH ×2 (08:11→22:08)
[2019-12-17] MEDS: NICOTINE 14MG/24HR PATCH TRANSDERM SCH ×2 (08:11→08:34)
[2019-12-17] MEDS: PANTOPRAZOLE 40 MG/10 ML VIAL IVP SCH ×2 (08:11→22:09)
[2019-12-17] MEDS ORDERED: amLODIPine 2.5 MG TAB PO SCH (09:00)
--- NOTE | 2019-12-17 12:20 | P.PN ---
Subjective Progress Note Date: 12/17/19 34-year-old patient of Dr. Cristina, past medical history of hypertension not o n any antihypertensives, current smoker, ALLERGIC rhinitis home medications include Astepro, Tanja, Flonase and Ventolin inhaler, employed as an x-ray tech at the [employer], was at work today on 12/16/2023 she started experiencing dull pressure in her chest in the left breast area, was occasiona lly sharper in nature, and lasted for a few hours, she is still experiencing some chest discomfort right now. She had her blood pressure checked by someone at work and it was quite elevated with systolic in the 230s. Patient states she had some mild shortness of breath but she thinks it was more from anxiety. No nausea or vomiting, no diaphoresis, no recent illness. The pressure-like chest sensation was radiating to the bilateral shoulder blades. NO Altered mentation, no lower extremity swelling. EKG showed normal sinus rhythm with a Q waves in the anterior leads including V2, V3, V4, and evidence of anterior infarct of undetermined age. T-wave inversion in the lead 3. 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 Labs showed CBC within normal limits, remission profile was within normal limits, sodium is 136, potassium is 4.4, chloride is 108, CO2 is 20, BUN of 16, creatinine is 0.79, first troponin came back as 0.046. Echocardiogram is pending, patient will be started on Topamax for blood pressure control, she is currently awake and alert, responding appropriately to questions, no acute distress, lung sounds are clear to auscultation. Urine hCG was negative. On today's evaluation of 62,020, the patient is doing well. No specific complaints. No chest pain. She is on clevidipine drip at 7 mg an hour. BP is under good control. Echocardiogram is in progress. CT angiogram showed patent renal arteries. There is no evidence of any dissection. Echocardiogram is pending for now. There is some troponin leak related to hypertensive urgency/emergency. No headaches. No altered mentation. No signs of any renal failure. The overall blood pressure control is improved significantly and the patient will be gradually weaned off the clevidipine drip. The patient was started on metoprolol 25 mg by mouth twice a day and cardiology consult patient is also be obtained. Objective - Vital Signs Vital signs: Vital Signs Temp 97.6 F 12/17/19 08:00 Pulse 67 12/17/19 11:00 Resp 22 12/17/19 11:00 BP 129/84 12/17/19 11:00 Pulse Ox 95 12/17/19 11:00 Intake & Output 12/16/19 12/17/19 12/17/19 18:59 06:59 18:59 Intake Total 83.733 870.0 120 Output Total 0 125 Balance 83.733 870.0 -5 Weight 84.822 kg 85.1 kg Intake: IV 60 220 120 0.9 NACL 40 80 0.9% Sodium Chloride 20 140 120 Intake, IV Titration 23.733 200.0 Amount Clevidipine Butyrate 25 23.733 200.0 mg In Empty Bag 1 bag @ 1 MG/HR 2 mls/hr IV .Q24H [facility] Rx#:[id number] Oral 450 Output: Urine 0 125 Other: # Voids 1 400 - Exam The patient appeared well nourished and normally developed. Vital signs as documented. Head exam is unremarkable. No scleral icterus or corneal arcus noted. Neck is without jugular venous distension, thyromegaly, or carotid bruits. Carotid upstrokes are brisk bilaterally. Lungs are clear to auscultation and percussion. Cardiac exam reveals the PMI to be normally sized and situated. Rhythm is regular. First and second heart sounds normal. No murmurs, rubs or gallops. Abdominal exam reveals normal bowel sounds, no masses, no organomegaly and no aortic enlargement. Extremities are nonedematous and both femoral and pedal pulses are normal.Examination of the skin revealed no evidence of significant rashes, suspicious appearing nevi or other concerning lesions. Neurologically the patient is awake and alert and there is no focal neurological deficit - Labs CBC & Chem 7: 12/17/19 04:31 12/17/19 04:31 Labs: Abnormal Lab Results - Last 24 Hours (Table) 12/16/19 12/16/19 12/16/19 Range/Units 12:43 12:43 12:43 Sodium 136 L (137-145) mmol/L Chloride 108 H (98-107) mmol/L Carbon Dioxide 20 L (22-30) mmol/L Glucose 108 H (74-99) mg/dL Magnesium 2.4 H (1.6-2.3) mg/dL Troponin I 0.046 H* (0.000-0.034) ng/mL Ur Leukocyte Esterase (Negative) U Marijuana (THC) Screen (NotDetected) 12/16/19 12/16/19 12/16/19 Range/Units 13:45 17:43 22:03 Sodium (137-145) mmol/L Chloride (98-107) mmol/L Carbon Dioxide (22-30) mmol/L Glucose (74-99) mg/dL Magnesium (1.6-2.3) mg/dL Troponin I 0.509 H* (0.000-0.034) ng/mL Ur Leukocyte Esterase Small H (Negative) U Marijuana (THC) Screen Detected H (NotDetected) 12/17/19 12/17/19 Range/Units 04:31 04:31 Sodium 133 L (137-145) mmol/L Chloride (98-107) mmol/L Carbon Dioxide 21 L (22-30) mmol/L Glucose (74-99) mg/dL Magnesium (1.6-2.3) mg/dL Troponin I 0.544 H* (0.000-0.034) ng/mL Ur Leukocyte Esterase (Negative) U Marijuana (THC) Screen (NotDetected) Assessment and Plan Plan: #1. Hypertensive emergency , treated in the intensive care unit with a clevidip ine drip, with improved blood pressure control. No target organ damage. Echocardiac Freddy is pending for now. CT angiogram shows no evidence of any dissection and a renal arteries are patent. #2. Chest pain, mildly elevated troponin, recovered and there is some minimal troponin leak. #3. History of hypertension not on any antihypertensives #4. History of ALLERGIC rhinitis #5. Current smoker, smokes half a pack a day for 10 years #6. Family history of her disease, mother has hypertension, father has hyperlipidemia, grandfather had [place] in his 40s #7 cannabis use. Rest of the urine as a screen is negative. Plan Wean off the clevidipine drip and discontinue Continue metoprolol orally Hydralazine as needed for systolic blood pressure above 160 Echocardiogram pending We'll continue to follow. The patient can be transferred out of the intensive care unit once she is weaned off the clevidipine drip.
--- NOTE | 2019-12-17 17:00 | P.PN ---
Subjective Patient is admitted for possible hypertensive urgency patient does have elevated troponins and patient does have significant risk factors of premature coronary artery disease because of which are cardiology recommended cardiac catheterization to the patient but patient declined cardiac catheterization. Patient is presently on clevedipine and nitroglycerin was discontinued today morning. Patient blood pressure is well controlled at this time. Constitutional: Denied any fatigue denied any fever. Cardio vascular: denied any chest pain, palpitations Gastrointestinal denied any nausea vomiting Pulmonary: Denied any shortness of breath cough Neurologic denied any new focal deficits All inpatient medications were reviewed and appropriate changes in these medications as dictated in the interval history and assessment and plan. Objective - Vital Signs Vital signs: Vital Signs Temp 97.6 F 12/17/19 12:00 Pulse 70 12/17/19 14:00 Resp 19 12/17/19 14:00 BP 131/87 12/17/19 14:00 Pulse Ox 97 12/17/19 14:00 Intake & Output 12/16/19 12/17/19 12/17/19 18:59 06:59 18:59 Intake Total 83.733 870.0 160 Output Total 0 125 Balance 83.733 870.0 35 Weight 84.822 kg 85.1 kg Intake: IV 60 220 160 0.9 NACL 40 80 0.9% Sodium Chloride 20 140 160 Intake, IV Titration 23.733 200.0 Amount Clevidipine Butyrate 25 23.733 200.0 mg In Empty Bag 1 bag @ 1 MG/HR 2 mls/hr IV .Q24H [facility] Rx#:[id number] Oral 450 Output: Urine 0 125 Other: # Voids 1 400 - Exam PHYSICAL EXAMINATION: GENERAL: The patient is alert and oriented x3, not in any acute distress. Well developed, well nourished. HEENT: Pupils are round and equally reacting to light. EOMI. No scleral icterus. No conjunctival pallor. Normocephalic, atraumatic. No pharyngeal erythema. No thyromegaly. CARDIOVASCULAR: S1 and S2 present. No murmurs, rubs, or gallops. PULMONARY: Chest is clear to auscultation, no wheezing or crackles. ABDOMEN: Soft, nontender, nondistended, normoactive bowel sounds. No palpable organomegaly. MUSCULOSKELETAL: No joint swelling or deformity. EXTREMITIES: No cyanosis, clubbing, or pedal edema. NEUROLOGICAL: Gross neurological examination did not reveal any focal deficits. SKIN: No rashes. - Labs CBC & Chem 7: 12/17/19 04:31 12/17/19 04:31 Labs: Abnormal Lab Results - Last 24 Hours (Table) 12/16/19 12/16/19 12/16/19 Range/Units 12:43 13:45 17:43 Sodium (137-145) mmol/L Carbon Dioxide (22-30) mmol/L Magnesium 2.4 H (1.6-2.3) mg/dL Troponin I 0.509 H* (0.000-0.034) ng/mL Ur Leukocyte Esterase (Negative) U Marijuana (THC) Screen Detected H (NotDetected) 12/16/19 12/17/19 12/17/19 Range/Units 22:03 04:31 04:31 Sodium 133 L (137-145) mmol/L Carbon Dioxide 21 L (22-30) mmol/L Magnesium (1.6-2.3) mg/dL Troponin I 0.544 H* (0.000-0.034) ng/mL Ur Leukocyte Esterase Small H (Negative) U Marijuana (THC) Screen (NotDetected) Assessment and Plan Plan: -Hypertensive emergency with elevated troponins mild and stable: Patient is an above-mentioned the medications IV will be switched to oral antidepressant medications. -Chest pain: Secondary to habitus emergency mild elevated troponin secondary to elevated blood pressure -Nicotine abuse:: Counseling was provided
--- NOTE | 2019-12-17 17:38 | ECHOF ---
Referral Reason:HTN MEASUREMENTS -------- HEIGHT: 172.7 cm WEIGHT: 84.8 kg BP: 118/95 IVSd: 1.9 cm (0.6 - 1.1) LVIDd: 3.0 cm (3.9 - 5.3) LVPWd: 1.8 cm (0.6 - 1.1) IVSs: 1.8 cm LVIDs: 1.8 cm LVPWs: 2.2 cm LAESV Index (A-L): 24.39 ml/m Ao Diam: 3.0 cm (2.0 - 3.7) LA Diam: 1.7 cm (2.7 - 3.8) AV Cusp: 2.0 cm (1.5 - 2.6) EPSS: 0.7 cm MV E Ellis: 0.96 m/s MV DecT: 158 ms MV A Ellis: 0.68 m/s MV E/A Ratio: 1.42 RAP: 5.00 mmHg RVSP: 16.07 mmHg MV EF SLOPE: 85.57 mm/s (70 - 150) MV EXCURSION: 12.45 mm (> 18.000) FINDINGS -------- Sinus rhythm. This was a technically good study. The left ventricular size is normal. There is severe concentric left ventricular hypertrophy. Ove rall left ventricular systolic function is normal with, an EF between 60 - 65 %. The diastolic fill ing pattern is normal for the age of the patient 11.53. The right ventricle is normal in size. The left atrial size is normal. Normal LA size by volume 22+/-6 ml/m2. The right atrial size is normal. Interatrial and interventricular septum intact. The aortic valve is trileaflet and appears structurally normal. The mitral valve is normal. There is trace mitral regurgitation. The tricuspid valve appears structurally normal. Trace tricuspid regurgitation present. Right tracie tricular systolic pressure is normal at < 35 mmHg. There is no pulmonic regurgitation present. The aortic root size is normal. Normal inferior vena cava with normal inspiratory collapse consistent with estimated right atrial pre ssure of 5 mmHg. There is a small, generalized pericardial effusion present. CONCLUSIONS -------- 1. Sinus rhythm. 2. This was a technically good study. 3. The left ventricular size is normal. 4. There is severe concentric left ventricular hypertrophy. 5. Overall left ventricular systolic function is normal with, an EF between 60 - 65 %. 6. The diastolic filling pattern is normal for the age of the patient 11.53 7. The right ventricle is normal in size. 8. The left atrial size is normal. 9. Normal LA size by volume 22+/-6 ml/m2. 10. The right atrial size is normal. 11. Interatrial and interventricular septum intact. 12. The aortic valve is trileaflet and appears structurally normal. 13. The mitral valve is normal. 14. There is trace mitral regurgitation. 15. The tricuspid valve appears structurally normal. 16. Trace tricuspid regurgitation present. 17. Right ventricular systolic pressure is normal at < 35 mmHg. 18. There is no pulmonic regurgitation present. 19. The aortic root size is normal. 20. Normal inferior vena cava with normal inspiratory collapse consistent with estimated right atrial pressure of 5 mmHg. 21. There is a small, generalized pericardial effusion present. MOTOR REBUILDER: Mariann Pathak RDCS
[2019-12-17] MEDS: FLUTICASONE 50MCG/SPRAY NASAL 16GM EA NOSTRIL SCH (22:09)
[2019-12-17] MEDS: ALPRAZolam 0.25 MG TAB PO PRN (23:09)
[2019-12-18] MEDS: CLEVIDIPINE BUTYRATE 25 MG in EMPTY BAG 1 BAG IV SCH (00:03)
[2019-12-18 05:02] LABS: Basophils # (A) 0.1 k/uL (0-0.2); Basophils % (A) 2 %; Eosinophils # (A) 0.5 k/uL (0-0.7); Eosinophils % (A) 6 %; HCT 45.6 % (34.0-46.0); HGB 14.7 gm/dL (11.4-16.0); Lymphocytes # (A) 2.8 k/uL (1.0-4.8); Lymphocytes % (A) 37 %; MCH 28.8 pg (25.0-35.0); MCHC 32.3 g/dL (31.0-37.0); MCV 89.1 fL (80.0-100.0); Mean Platelet Volume 8.9; Monocytes # (A) 0.4 k/uL (0-1.0); Monocytes % (A) 5 %; Neutrophils # (A) 3.7 k/uL (1.3-7.7); Neutrophils % (A) 49 %; Platelet Count 219 k/uL (150-450); RBC 5.12 m/uL (3.80-5.40); RDW 14.2 % (11.5-15.5); WBC 7.6 k/uL (3.8-10.6)
[2019-12-18 05:26] LABS: Albumin 3.8 g/dL (3.5-5.0); Calcium 8.7 mg/dL (8.4-10.2); Potassium 4.4 mmol/L (3.5-5.1); Total Bilirubin 0.5 mg/dL (0.2-1.3); Total Protein 6.5 g/dL (6.3-8.2)
--- NOTE | 2019-12-18 07:47 | P.PN ---
Subjective Progress Note Date: 12/18/19 Principal diagnosis: Chest pain This is a 34-year-old female patient with hypertension and history of smoking who was admitted to the hospital was hypertensive emergency. She presented with a chest discomfort and elevated blood pressure. Also her cardiac enzymes came in to be slightly abnormal. The echo revealed normal LV function without significant valvular abnormalities. She was seen today, December 172019. The patient states that she has been chest pain-free. The pressure is a slightly elevated. Currently she is metoprolol 25 mg by mouth twice a day I'm going to add lisinopril at 5 mg by mouth daily. She underwent an echo which revealed normal LV function without any significant valvular abnormalities. I discussed with the patient the need for coronary yana ogram to rule out severe underlying coronary artery disease but the patient would like to wait at this point. Objective - Vital Signs Vital signs: Vital Signs Temp 98 F 12/18/19 04:00 Pulse 68 12/18/19 07:00 Resp 18 12/18/19 07:00 BP 121/75 12/18/19 07:00 Pulse Ox 96 12/18/19 07:00 Intake & Output 12/17/19 12/18/19 12/18/19 18:59 06:59 18:59 Intake Total 270 285.833 20 Output Total 475 125 Balance -205 160.833 20 Weight 87.6 kg Intake: IV 220 240 20 0.9% Sodium Chloride 220 240 20 Intake, IV Titration 50 45.833 Amount Clevidipine Butyrate 25 50 45.833 mg In Empty Bag 1 bag @ 1 MG/HR 2 mls/hr IV .Q24H [facility] Rx#:[id number] Output: Urine 475 125 Other: # Voids 1 - Constitutional General appearance: Present: no acute distress - Respiratory Respiratory: bilateral: CTA - Cardiovascular Rhythm: regular Heart sounds: normal: S1, S2 - Labs CBC & Chem 7: 12/18/19 04:42 12/18/19 04:42 Labs: Abnormal Lab Results - Last 24 Hours (Table) 12/18/19 Range/Units 04:42 Sodium 133 L (137-145) mmol/L Carbon Dioxide 19 L (22-30) mmol/L Assessment and Plan Assessment: Assessment Hypertension emergency Mildly abnormal cardiac enzymes Chest discomfort which has improved History of smoking Plan Continue the current medical regimen I lisinopril to the current medical regimen Heart catheterization was discussed and the patient would like to wait Follow-up with the patient
[2019-12-18] MEDS ORDERED: LISINOPRIL 5 MG TAB PO SCH (09:00)
[2019-12-18] MEDS: LORATADINE 10 MG TAB PO SCH (09:11)
[2019-12-18] MEDS: METOPROLOL TARTRATE 25 MG TAB PO SCH (09:11)
[2019-12-18] MEDS: NICOTINE 14MG/24HR PATCH TRANSDERM SCH (09:11)
[2019-12-18] MEDS: PANTOPRAZOLE 40 MG/10 ML VIAL IVP SCH (09:11)
--- NOTE | 2019-12-18 11:20 | P.PN ---
Subjective Progress Note Date: 12/18/19 34-year-old patient of Dr. Cristina, past medical history of hypertension not o n any antihypertensives, current smoker, ALLERGIC rhinitis home medications include Astepro, Tanja, Flonase and Ventolin inhaler, employed as an x-ray tech at the [employer], was at work today on 12/16/2023 she started experiencing dull pressure in her chest in the left breast area, was occasiona lly sharper in nature, and lasted for a few hours, she is still experiencing some chest discomfort right now. She had her blood pressure checked by someone at work and it was quite elevated with systolic in the 230s. Patient states she had some mild shortness of breath but she thinks it was more from anxiety. No nausea or vomiting, no diaphoresis, no recent illness. The pressure-like chest sensation was radiating to the bilateral shoulder blades. NO Altered mentation, no lower extremity swelling. EKG showed normal sinus rhythm with a Q waves in the anterior leads including V2, V3, V4, and evidence of anterior infarct of undetermined age. T-wave inversion in the lead 3. 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 Labs showed CBC within normal limits, remission profile was within normal limits, sodium is 136, potassium is 4.4, chloride is 108, CO2 is 20, BUN of 16, creatinine is 0.79, first troponin came back as 0.046. Echocardiogram is pending, patient will be started on Topamax for blood pressure control, she is currently awake and alert, responding appropriately to questions, no acute distress, lung sounds are clear to auscultation. Urine hCG was negative. On today's evaluation of 62,020, the patient is doing well. No specific complaints. No chest pain. She is on clevidipine drip at 7 mg an hour. BP is under good control. Echocardiogram is in progress. CT angiogram showed patent renal arteries. There is no evidence of any dissection. Echocardiogram is pending for now. There is some troponin leak related to hypertensive urgency/emergency. No headaches. No altered mentation. No signs of any renal failure. The overall blood pressure control is improved significantly and the patient will be gradually weaned off the clevidipine drip. The patient was started on metoprolol 25 mg by mouth twice a day and cardiology consult patient is also be obtained. On today's evaluation of 12/18/2019, the patient is doing extremely well. She has no specific complaints. No chest pain. No cough. No sputum production. No angina. No pleurisy. She is off the clevidipine drip. She is on a combination of Zestril 5 mg by mouth daily and metoprolol 25 mg by mouth twice a day. Her BP is under good control. Echocardiogram was done and it showed concentric left ventricular hypertrophy, severe, indicating chronic hypertension. Nevertheless, the patient has no complaints at all. Her blood work is also within normal. Thyroid function test is within normal limits. Objective - Vital Signs Vital signs: Vital Signs Temp 98 F 12/18/19 04:00 Pulse 68 12/18/19 07:00 Resp 18 12/18/19 07:00 BP 121/75 12/18/19 07:00 Pulse Ox 96 12/18/19 07:00 Intake & Output 12/17/19 12/18/19 12/18/19 18:59 06:59 18:59 Intake Total 270 285.833 20 Output Total 475 125 Balance -205 160.833 20 Weight 87.6 kg Intake: IV 220 240 20 0.9% Sodium Chloride 220 240 20 Intake, IV Titration 50 45.833 Amount Clevidipine Butyrate 25 50 45.833 mg In Empty Bag 1 bag @ 1 MG/HR 2 mls/hr IV .[facility] Rx#:[id number] Output: Urine 475 125 Other: # Voids 1 - Exam The patient appeared well nourished and normally developed. Vital signs as documented. Head exam is unremarkable. No scleral icterus or corneal arcus note d. Neck is without jugular venous distension, thyromegaly, or carotid bruits. Carotid upstrokes are brisk bilaterally. Lungs are clear to auscultation and percussion. Cardiac exam reveals the PMI to be normally sized and situated. Rhythm is regular. First and second heart sounds normal. No murmurs, rubs or gallops. Abdominal exam reveals normal bowel sounds, no masses, no organomegaly and no aortic enlargement. Extremities are nonedematous and both femoral and pedal pulses are normal.Examination of the skin revealed no evidence of significant rashes, suspicious appearing nevi or other concerning lesions. Neurologically the patient is awake and alert and there is no focal neurological deficit - Labs CBC & Chem 7: 12/18/19 04:42 12/18/19 04:42 Labs: Abnormal Lab Results - Last 24 Hours (Table) 12/18/19 Range/Units 04:42 Sodium 133 L (137-145) mmol/L Carbon Dioxide 19 L (22-30) mmol/L Assessment and Plan Plan: #1. Hypertensive emergency , treated in the intensive care unit with a clevidipine drip, with improved blood pressure control. No target organ damage. Echo of the heart showed severe concentric LVH consistent with hypertensive heart disease and long-term hypertension. Her BP needs to be under tighter control on outpatient basis. Currently well-controlled on a combination of metoprolol and lisinopril. #2. Chest pain, mildly elevated troponin, recovered and there is some minimal troponin leak. #3. History of hypertension not on any antihypertensives #4. History of ALLERGIC rhinitis #5. Current smoker, smokes half a pack a day for 10 years #6. Family history of her disease, mother has hypertension, father has hyperlipidemia, grandfather had CT in his 40s #7 cannabis use. Rest of the urine as a screen is negative. Plan Salt restriction Continue metoprolol and Zestril Education about BP Transfer out of a medical floor possible discharge today if cleared by cardiology.
[2019-12-18 12:48] VITALS: TEMP 97.8
--- NOTE | 2019-12-18 14:14 | P.DS ---
Providers Date of admission: 12/16/19 16:40 Attending physician: Beni Aldana Consults: 12/16/19 15:58 Consult Physician Routine Consulting Provider: Rose Schuster Consult Reason/Comments: icu patient Do you want consulting provider notified?: Already Contacted 12/16/19 15:59 Consult Physician Routine Consulting Provider: Shawn Alvarez Consult Reason/Comments: elevated troponin, hypertensive emergency Do you want consulting provider notified?: Yes Primary care physician: Mariann Coe [facility] Course: 34-year-old female admitted for hypertensive emergency had mildly elevated troponins which were believed to be secondary to hypertensive emergency. Her chest pain is probably secondary to that and patient will need to be further evaluated for second because of hypertension considering her age and uncontrollable blood pressure. Patient's blood pressure is well controlled at this time patient is presently being discharged on a small dose of beta sydni because of the chest been elevated troponins along with the RAJI inhibitor. Cardiology recommended cardiac catheterization patient is agreeable for that as an outpatient. As patient has a thoracic CAT scan which showed patent the arterial tree, but did not do renal artery Doppler looking for liver artery stenosis although patient need to look into other causes of secondary hypertension as an outpatient PHYSICAL EXAMINATION: GENERAL: The patient is alert and oriented x3, not in any acute distress. Well developed, well nourished. HEENT: Pupils are round and equally reacting to light. EOMI. No scleral icterus. No conjunctival pallor. Normocephalic, atraumatic. No pharyngeal erythema. No thyromegaly. CARDIOVASCULAR: S1 and S2 present. No murmurs, rubs, or gallops. PULMONARY: Chest is clear to auscultation, no wheezing or crackles. ABDOMEN: Soft, nontender, nondistended, normoactive bowel sounds. No palpable organomegaly. MUSCULOSKELETAL: No joint swelling or deformity. EXTREMITIES: No cyanosis, clubbing, or pedal edema. NEUROLOGICAL: Gross neurological examination did not reveal any focal deficits. SKIN: No rashes. Assessment and Plan Plan: -Hypertensive emergency -Chest pain: Secondary to hypertensive emergency mild elevated troponin secondary to elevated blood pressure -Nicotine abuse:: Patient Condition at Discharge: Critical Plan - Discharge Summary Discharge Rx Participant: Yes New Discharge Prescriptions: New Metoprolol Tartrate [Lopressor] 25 mg PO BID #30 tab Lisinopril [Zestril] 5 mg PO DAILY #30 tab Continue Fluticasone Nasal Sloan [Flonase Nasal Sloan] 1 spray EA NOSTRIL HS Azelastine HCl [Astepro] 1 spray EA NOSTRIL DAILY Fexofenadine HCl [Tanja Allergy] 180 mg PO HS Albuterol Sulfate [Ventolin HFA] 2 puff INHALATION RT-Q4H PRN PRN Reason: Shortness Of Breath Discharge Medication List Albuterol Sulfate [Ventolin HFA] 2 puff INHALATION RT-Q4H PRN 12/16/19 [History] Azelastine HCl [Astepro] 1 spray EA NOSTRIL DAILY 12/16/19 [History] Fexofenadine HCl [Tanja Allergy] 180 mg PO HS 12/16/19 [History] Fluticasone Nasal Sloan [Flonase Nasal Sloan] 1 spray EA NOSTRIL HS 12/16/19 [History] Lisinopril [Zestril] 5 mg PO DAILY #30 tab 12/18/19 [Rx] Metoprolol Tartrate [Lopressor] 25 mg PO BID #30 tab 12/18/19 [Rx] Follow up Appointment(s)/Referral(s): Fiona Laureano MD [REFERRING] - 1 Week Discharge Disposition: HOME SELF-CARE
[2019-12-18 15:34] VITALS: BP 154/88; PULSE 85; RESP 18
[2019-12-20 16:36] LABS: Metanephrine, Free <25 pg/mL (< OR = 57); Normetanephrine, Free 119 pg/mL (< OR = 148); Total, Free (MN + NMN) 119 pg/mL (< OR = 205)
== END 2019-12-18 16:38 | disposition home or self-care (01) | DRG 305 ==
LOC: EC 12:00 → 2SICU 16:40
PROVIDERS: ADMIT Hospitalist; ATTEND Hospitalist
DX: I16.1 Hypertensive emergency (principal); E87.1 Hypo-osmolality and hyponatremia; I11.9 Hypertensive heart disease without heart failure; Z11.59 Encounter for screening for other viral diseases; R07.9 Chest pain, unspecified; R20.2 Paresthesia of skin; R79.89 Other specified abnormal findings of blood chemistry; F17.210 Nicotine dependence, cigarettes, uncomplicated; Z71.6 Tobacco abuse counseling; Z79.899 Other long term (current) drug therapy; Z86.59 Personal history of other mental and behavioral disorders; Z91.048 Other nonmedicinal substance allergy status; Z82.49 Family history of ischemic heart disease and other diseases of the circulatory system; Z83.49 Family history of other endocrine, nutritional and metabolic diseases; Z80.52 Family history of malignant neoplasm of bladder; Z82.61 Family history of arthritis
CPT/HCPCS: 36415; 71275; 74174; 80048; 80053; 80306; 81001; 81025; 83735; 83835; 84443; 84484; 85025; 85610; 85730; 93005; 93306; 96365; 99285